=== PATIENT | male | born 1935 | race Caucasian/White ===

== ENCOUNTER → 2016-11-05 | Outpatient (CLI) | payer BC, MEDICARE, OTHER ==
[~2016-11-05] MED LIST: CYAN500T PO; HYDR2TAB2 PO; LEVO125T57 PO; METF500T5 PO; MULT-506 PO; OMEG10007 PO; TAMS0.4C59 PO
[2016-11-05 17:51] LABS: BASO % 1.3 %; BASO ABS # 0.12 K/uL (0-0.2); COMPLETE YES; EOS % 2.3 %; HEMATOCRIT 40.7 % (42-52); IG% 0.1 %; LYMPH % 43.2 %; LYMPH ABS # 4.03 K/uL (1.2-3.4); MEAN CELL VOLUME 98.1 fL (80-100); MEAN CORPUSCULAR HEMOGLOBIN 35.2 pg (25-34); MEAN CORPUSCULAR HGB CONC 35.9 g/dl (32-36); MEAN PLATELET VOLUME 11.1 fL (7.4-10.4); MONO % 10.3 %; NEUT % 42.8 %; PLATELET COUNT 238 K/uL (130-400); RED BLOOD COUNT 4.15 M/uL (4.7-6.1); WHITE BLOOD COUNT 9.33 K/uL (4.8-10.8)
[2016-11-05 18:03] LABS: ALT/SGPT 55 U/L (12-78); AST/SGOT 30 U/L (15-37); BLOOD UREA NITROGEN 12 mg/dl (7-18); CALCIUM 9.3 mg/dl (8.5-10.1); CARBON DIOXIDE 24 mmol/L (21-32); CHLORIDE 105 mmol/L (98-107); CHOLESTEROL 180 mg/dl (0-200); CREATININE 0.87 mg/dl (0.60-1.40); GLUCOSE 104 mg/dl (70-99); POTASSIUM 4.1 mmol/L (3.5-5.1); SODIUM 140 mmol/L (136-145)
[2016-11-05 18:12] LABS: ALB/GLOB RATIO 1.3 (0.9-2); ALKALINE PHOSPHATASE 46 U/L (45-117); CHOLESTEROL/HDL RATIO 4.5; HDL CHOLESTEROL 40 mg/dl; TRIGLYCERIDES 280 mg/dl (0-150); VERY LOW DENSITY LIPOPROT CALC 56 mg/dl
[2016-11-06 07:15] LABS: ESTIMATED AVERAGE GLUCOSE 174 mg/dl; HA1C FLAG Normal (Normal)
== END | disposition home or self-care (01) ==
LOC: C.LABSPEC 17:30
PROVIDERS: ATTEND Internal Medicine
DX: I25.10 Atherosclerotic heart disease of native coronary artery without angina pectoris (principal); E11.9 Type 2 diabetes mellitus without complications; E78.5 Hyperlipidemia, unspecified; E03.9 Hypothyroidism, unspecified

== ENCOUNTER → 2018-04-13 | Outpatient (CLI) | payer MEDICARE | END | disposition home or self-care (01) | LOC: C.LABSPEC 17:14 | PROVIDERS: ATTEND Internal Medicine | DX: N39.0 Urinary tract infection, site not specified (principal) ==